=== PATIENT | female | born 1985 | race Caucasian/White ===

== ENCOUNTER 2017-11-14 13:27 | Day surgery (SDC) | payer OTHER ==
[~2017-11-14] VITALS: Ht 172.7 cm; Wt 125.0 kg
--- NOTE | ~2017-11-14 | OP ---
PATIENT NAME: JULIA DAVE MEDICAL RECORD: [id number] :83 LOCATION:[facility] ADMISSION DATE: SURGEON: MORRO MILLAN MD DATE OF OPERATION: 11/14/2017 PROCEDURE: EGD with a fecal transplant, also with small bowel contents collected to look for the presence of CDT. MEDICATIONS: Per TIVA. The patient received 500 mg of propofol, O2 4 liters and also received Zofran 4 mg IV push times 2. 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 FINDINGS: Informed consent was given. The patient was made comfortable with the above medications. After reaching an adequate level of sedation by slow IV push, the patient was placed on her left side. The colonoscope was advanced under direct visualization through the posterior pharyngeal area and advanced into the small bowel to approximately 60 cm. It appears we did get into the third and fourth portions of the duodenum. After checking placement, we then injected 60 cc which was 2 vials of fecal transplant material followed by 180 cc of water. This was injected slowly and a small amount of air was placed in this area to facilitate passage of the fluid into the distal duodenum to more the jejunum. The scope was then withdrawn. It should be noted that the patient only had minimal inflammation in the esophagus, stomach and the small bowel tissue was felt to be normal. The patient tolerated the procedure very well. IMPRESSION: 1. The patient with recurrent CDT colitis. 2. Fecal transplant. The colonoscope was advanced to 60 cm within the third and fourth portion of the duodenum and 60 cc of transplant material was injected followed by 180 cc of water. PLAN: The patient will be asked to stay in a recumbent position for about 30 minutes and she should eat a diet, which is nongaseous and very soft tonight. TRANSINT:[id number] Voice Confirmation ID: [id number] DOCUMENT ID: [id number] MORRO MILLAN MD at 1304 CC: SKYLER FERRER MD [id number] DICTATION DATE: 11/14/171716 NURSE AIDE: 11/14/17 [address] [facility] 11/14/17 [place] [id number]
[2017-11-14 14:18] LABS: HEMATOCRIT 40.3 % (36.0-48.0); HEMOGLOBIN 13.7 g/dL (12-16); MCH 30.4 pg (26.0-34.0); MCV 89.6 fL (80.0-100.0); MEAN PLATELET VOLUME 10.2 fL (7.4-10.4); RBC 4.5 10x6/uL (4.00-5.40); RDW 12.8 % (11.5-14.5); WBC 6.2 10x3/uL (4.8-10.8)
[2017-11-14 14:19] LABS: HCG URINE NEGATIVE (NEGATIVE)
[2017-11-14] MEDS ORDERED: PEPCID40 MG (14:46)
[2017-11-14] MEDS ORDERED: VANCOMYCIN (14:47)
[2017-11-14] MEDS ORDERED: ALBUTEROL SULF8.5 GM INH (14:48)
[2017-11-14] MEDS ORDERED: ZOFRAN ODT4 MG/UDTAB PO (14:49)
[2017-11-14] MEDS ORDERED: PROBIOTIC1 EAC1 PO (14:52)
[2017-11-14] MEDS ORDERED: ACETAMINOPHEN500 M1 PO (14:53)
[2017-11-14 15:12] VITALS: Ht 172.7 cm; Wt 125.0 kg
== END 2017-11-14 18:05 | disposition home or self-care (01) ==
LOC: D.OPS 13:27
PROVIDERS: Anesthesiology
DX: A04.71 Enterocolitis due to Clostridium difficile, recurrent (principal); Z01.812 Encounter for preprocedural laboratory examination

== ENCOUNTER 2018-05-05 18:55 | Emergency (ER) | payer OTHER ==
[~2018-05-05] VITALS: Ht 172.7 cm; Wt 120.2 kg
[~2018-05-05 18:55] MED LIST: ACETAMINOPHEN500 M1 PO; ALBUTEROL SULF8.5 GM INH; PEPCID40 MG; PROBIOTIC1 EAC1 PO; VANCOMYCIN; ZOFRAN ODT4 MG/UDTAB PO
[2018-05-05 19:13] VITALS: Ht 172.7 cm; Wt 120.2 kg
[2018-05-05] MEDS ORDERED: PROTONIX40 MG (19:14)
[2018-05-05] MEDS ORDERED: QVAR REDIHALE10.6 G1 INH (19:15)
[2018-05-05] MEDS ORDERED: ZOFRAN4 MG (19:15)
[2018-05-05] MEDS ORDERED: CARAFATE1 G PO (19:15)
[2018-05-05 20:05] LABS: BASOPHILS 0.3 % (0-2); EOSINOPHILS 1.7 % (0-7); HEMATOCRIT 40.1 % (36.0-48.0); HEMOGLOBIN 13.7 g/dL (12-16); IMMATURE GRANULOCYTES 0.3 % (0-5); LYMPHOCYTES 25.7 % (15-50); MCH 30.1 pg (26.0-34.0); MCHC 34.2 g/dL (31.0-37.0); MCV 88.1 fL (80.0-100.0); MONOCYTES 5.6 % (2-11); NEUTROPHILS 66.4 % (40-80); PLATELET COUNT 276 10x3/uL (130-400); RBC 4.55 10x6/uL (4.00-5.40); WBC 9.3 10x3/uL (4.8-10.8)
[2018-05-05 20:08] LABS: INR 1.05 (0.85-1.17); PROTIME 13.2 SECONDS (11.6-15.0)
[2018-05-05 20:17] LABS: ALKALINE PHOSPHATASE 57 U/L (46-116); ALT (SGPT) 31 U/L (10-68); BILIRUBIN - TOTAL 0.32 mg/dL (0.2-1.3); CALC OSMOLALITY 277 mosm/kg (275-300); CALCIUM 8.8 mg/dL (8.5-10.1); CARBON DIOXIDE 25.2 mmol/L (21.0-32.0); CHLORIDE - SERUM 103 mmol/L (98-107); CREATININE - SERUM 0.8 mg/dL (0.6-1.3); GLUCOSE 91 mg/dL (74-106); POTASSIUM - SERUM 3.8 mmol/L (3.5-5.1); PROTEIN - SERUM 7.6 g/dL (6.4-8.2); SODIUM 140 mmol/L (136-145); UREA NITROGEN 10 mg/dL (7-18); eGFR NON AFRICAN AMERICAN 87 mL/min (90-120)
[2018-05-05 21:50] LABS: APPEARANCE CLEAR (CLEAR); BILIRUBIN NEGATIVE (NEGATIVE); COLOR YELLOW (YELLOW); GLUCOSE NEGATIVE (NEGATIVE); KETONE NEGATIVE (NEGATIVE); NITRITE NEGATIVE (NEGATIVE); PROTEIN NEGATIVE (NEGATIVE); SPECIFIC GRAVITY 1.015 (1.005-1.020); UROBILINOGEN NORMAL (NORMAL)
[2018-05-05 21:52] LABS: HCG URINE NEGATIVE (NEGATIVE)
[2018-05-05] MEDS ORDERED: CHRONULAC30 ML PO ×2 (22:29→22:34)
[2018-05-05] MEDS ORDERED: ZOFRAN8 MG PO (22:32)
[2018-05-05 22:46] VITALS: BP 132/85
== END 2018-05-05 22:46 | disposition home or self-care (01) ==
LOC: D.ER 18:55
PROVIDERS: Emergency Medicine
DX: R11.2 Nausea with vomiting, unspecified (principal); R19.7 Diarrhea, unspecified; K59.00 Constipation, unspecified